=== PATIENT | female | born 1970 | race Caucasian/White ===

== ENCOUNTER 2016-10-06 20:06 | Emergency (ER) | payer BC ==
[2016-10-06 20:48] VITALS: BP 133/83
[2016-10-06] MEDS ORDERED: Albuterol HFA INHALER* 8 gm MDI INH ONE (21:11)
[2016-10-06] MEDS ORDERED: Acetaminop/Codeine 30 MG TAB* 1 TAB (300 MG/30 MG) PO ONE (21:11)
--- NOTE | 2016-10-06 21:11 | UC ---
Throat Pain/Nasal Matteo HPI - HPI Summary HPI Summary: Productive cough and trouble sleeping x 1 week. Everyone at work has had coughing illness. Denies hx of asthma or lung disease. Recent chills and temps 100.1 yesterday and 100F today. here because her mother and daughter urged her to come. - History of Current Complaint Chief Complaint: UCGeneralIllness Stated Complaint: COUGH, AND CHEST CONGESTION Time Seen by Provider: 10/06/16 20:50 Hx Obtained From: Patient Hx Last Menstrual Period: unknown ?: No Onset/Duration: Gradual Onset, Lasting Days Severity: Moderate Cough: Productive Associated Signs & Symptoms: Negative: Sinus Discomfort, Nasal Discharge, Vomiting, Rash - Allergies/Home Medications Allergies/Adverse Reactions: Allergies Allergy/AdvReac Type Severity Reaction Status Date / Time No Known Allergies Allergy Verified 10/06/16 20:29 Home Medications: Home Medications Acetaminophen [Tylenol] 1,250 mg ONCE 10/06/16 [History Confirmed 10/06/16] Irbesartan 75 mg PO 10/06/16 [History Confirmed 10/06/16] PMH/Surg Hx/FS Hx/Imm Hx Endocrine History Of: Denies: Diabetes, Thyroid Disease Cardiovascular History Of: Reports: Hypertension Denies: Cardiac Disorders Respiratory History Of: Denies: COPD, Asthma GI/ History Of: Denies: Ulcer - Surgical History Surgical History: Yes Surgery Procedure, Year, and Place: C section - Social History Occupation: Employed Full-time Lives: With Family Alcohol Use: None Substance Use Type: None Smoking Status (MU): Never Smoked Tobacco - Immunization History Most Recent Influenza Vaccination: 2016 Review of Systems Constitutional: Chills, Fatigue Skin: Negative Eyes: Negative ENT: Negative Respiratory: Cough Cardiovascular: Negative Gastrointestinal: Negative Genitourinary: Negative Motor: Negative Neurovascular: Negative Musculoskeletal: Negative Neurological: Negative Psychological: Negative All Other Systems Reviewed And Are Negative: Yes Physical Exam Triage Information Reviewed: Yes Appearance: Well-Appearing, Obese Vital Signs: Initial Vital Signs Temp 98.6 F 10/06/16 20:43 Pulse 101 10/06/16 20:43 Resp 18 10/06/16 20:43 BP 133/83 10/06/16 20:43 Pulse Ox 95 10/06/16 20:43 Vital Signs Reviewed: Yes Eye Exam: Normal Eyes: Positive: Conjunctiva Clear ENT Exam: Normal ENT: Positive: Normal ENT inspection, Hearing grossly normal, Pharynx normal, TMs normal. Negative: Tonsillar swelling, Tonsillar exudate Dental Exam: Normal Neck exam: Normal Neck: Positive: Supple, Nontender, No Lymphadenopathy Respiratory Exam: Other - occ productive cough Respiratory: Positive: Lungs clear, Normal breath sounds, No respiratory distress Cardiovascular: Positive: No Murmur, Tachycardia Abdominal Exam: Normal Musculoskeletal Exam: Normal Musculoskeletal: Positive: Strength Intact, ROM Intact, No Edema Neurological Exam: Normal Neurological: Positive: Alert Psychological Exam: Normal Skin Exam: Normal Throat Pain/Nasal Course/Dx - Differential Dx/Diagnosis Provider Diagnoses: bronchitis Discharge - Discharge Plan Condition: Stable Disposition: HOME Prescriptions: Acetaminop/Codeine 30 MG TAB* [Tylenol/Codeine 30 MG TAB*] 1 - 2 tab PO BEDTIME PRN #15 tab MDD 2 PRN Reason: Cough Patient Education Materials: Acute Bronchitis (ED) Referrals: Kyra Levine PA [Primary Care Provider] - Additional Instructions: I expect you to have some coughing for another 1-2 weeks, but you should see gradual improvement. Call or return if you develop increasing fever, shortness of breath, chest pain , bloody sputum, or otherwise worsen. If you have not improved at all after several days, contact your primary care physician or return here.
--- NOTE | 2016-10-06 21:17 | RAD ---
INDICATION: Cough COMPARISON: None TECHNIQUE: PA and lateral dual-energy views were obtained. FINDINGS: Bones/Soft Tissues: There are no acute bony findings. Cardiomediastinal: The cardiomediastinal silhouette is normal. Lungs: There are no infiltrates. Pleura: There are no pleural effusions. Other: None IMPRESSION: NO ACTIVE DISEASE.
== END 2016-10-06 21:45 | disposition home or self-care (01) ==
LOC: UCEAST 20:06
DX: J40 Bronchitis, not specified as acute or chronic (principal); I10 Essential (primary) hypertension; E66.9 Obesity, unspecified
CPT/HCPCS: 71020; 99213; A9270-GY; G0463

== ENCOUNTER 2018-10-26 16:41 | Emergency (ER) | payer BC ==
[2018-10-26 16:59] VITALS: BP 133/60
--- NOTE | 2018-10-26 17:09 | UC ---
Back Pain HPI - HPI Summary HPI Summary: 47 yo female presents with right flank pain. She tells me that she had a kidney stone 16 years ago and states that this feels the same. Her pain began in her right flank yesterday and has worsened today. She denies injury. She has not taken anything OTC for her symptoms. Denies dysuria, hematuria, or trauma to the area. - History of Current Complaint Chief Complaint: UCBackPain Stated Complaint: BACK PAIN Time Seen by Provider: 10/26/18 17:09 Hx Obtained From: Patient Hx Last Menstrual Period: has been many years. Onset/Duration: Sudden Onset Timing: Constant Severity Initially: Mild Severity Currently: Moderate Pain Intensity: 6 Pain Scale Used: 0-10 Numeric - Allergies/Home Medications Allergies/Adverse Reactions: Allergies Allergy/AdvReac Type Severity Reaction Status Date / Time No Known Allergies Allergy Verified 10/26/18 16:58 PMH/Surg Hx/FS Hx/Imm Hx Cardiovascular History: Hypertension Psychological History: Bipolar Disorder - Surgical History Surgical History: Yes Surgery Procedure, Year, and Place: C section - Family History Known Family History: Positive: Hypertension - Social History Occupation: Employed Full-time Lives: With Family Alcohol Use: None Substance Use Type: None Smoking Status (MU): Never Smoked Tobacco - Immunization History Most Recent Influenza Vaccination: 2016 Review of Systems All Other Systems Reviewed And Are Negative: Yes Constitutional: Positive: Negative Skin: Positive: Negative Respiratory: Positive: Negative Cardiovascular: Positive: Negative Gastrointestinal: Positive: Negative Genitourinary: Positive: Negative Neurovascular: Positive: Negative Musculoskeletal: Positive: Other: - Right flank pain Neurological: Positive: Negative Psychological: Positive: Negative Physical Exam - Summary Physical Exam Summary: GENERAL: NAD. Obese SKIN: No rashes, sores, lesions, or open wounds. NECK: Supple. Nontender. No lymphadenopathy. CHEST: CTAB. No r/r/w. No accessory muscle use. Breathing comfortably and in no distress. CV: RRR. Without m/r/g. Pulses intact. Cap refill <2seconds ABDOMEN: Soft. NTTP. Mild right CVA TTP. Bowel sounds present MSK: TTP over RIGHT thoracic/lumbar paraspinal muscles. Pain with flexion and extension of spine. Pain during truncal twisting. Negative SLR b/l. Strength 5/ 5 B/L LEs including dorsiflexion and plantar flexion. FROM B/L LEs. No edema. NEURO: Alert. PSYCH: Age appropriate behavior. Triage Information Reviewed: Yes Vital Signs: Initial Vital Signs Temp 97.9 F 10/26/18 16:53 Pulse 82 10/26/18 16:53 Resp 18 10/26/18 16:53 BP 133/60 10/26/18 16:53 Pulse Ox 100 10/26/18 16:53 Laboratory Tests 10/26/18 17:37 POC Urine Color Yellow POC Urine Clarity Clear POC Urine pH 5.0 POC Ur Specif [place] 1.020 POC Urine Protein Negative POC Ur Glucose (UA) Negative POC Urine Ketones Negative POC Urine Blood 1+ A POC Urine Nitrite Negative POC Urine Bilirubin Negative POC Urine Urobilinogen 0.2 POC U Leukocyte Esteras Negative Vital Signs Reviewed: Yes Back Pain Course/Dx - Course Course Of Treatment: UA with 1+ blood. Given pt's hx of kidney stone and stating that this feels the same - will obtain CT today. CT: IMPRESSION: 1. There is colonic diverticulosis without evidence for acute diverticulitis. 2. No visible renal, ureteral or bladder calculi. Discussed results with pt. Suspect muscle strain. Advised to apply heat and try taking NSAIDs for discomfort. F/u if symptoms do not improve - Differential Dx/Diagnosis Provider Diagnosis: Back strain Discharge - Sign-Out/Discharge Documenting (check all that apply): Patient Departure All imaging exams completed and their final reports reviewed: Yes - Discharge Plan Condition: Stable Disposition: HOME Patient Education Materials: Muscle Strain (ED), Flank Pain (ED) Referrals: Kyra Levine PA [Primary Care Provider] - Additional Instructions: If you develop a fever, shortness of breath, chest pain, new or worsening symptoms - please call your PCP or go to the ED immediately. 1) Your CT did not show a kidney stone today and your urine did not show any sign of infection. 2) Your back pain could be related to a muscle strain and I recommend you take ibuprofen 600-800mg every 6-8 hours as needed for pain and apply heat to the area. 3) Please be rechecked by your primary doctor within 1 week if your symptoms have not improved. - Billing Disposition and Condition Condition: STABLE Disposition: Home
== END 2018-10-26 18:30 | disposition home or self-care (01) ==
LOC: UCEAST 16:41
DX: S39.012A Strain of muscle, fascia and tendon of lower back, initial encounter (principal); S29.012A Strain of muscle and tendon of back wall of thorax, initial encounter; X58.XXXA Exposure to other specified factors, initial encounter; Y92.9 Unspecified place or not applicable; K57.30 Diverticulosis of large intestine without perforation or abscess without bleeding; I10 Essential (primary) hypertension; F31.9 Bipolar disorder, unspecified
CPT/HCPCS: 74176; 81003; 99211; G0463

== ENCOUNTER 2019-09-20 16:05 | Emergency (ER) | payer BC ==
--- OUTSIDE RECORDS SUMMARY | 2019-09-20 16:11 | XMS REPORT | Continuity of Care Document ---
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 Problems Description No Information Available Social History Type Date Description Comments Sex Unknown Tobacco Use Start: Unknown Never Smoked Cigarettes ETOH Use Never used alcohol Recreational Drug Use Never Used Drugs Allergies, Adverse Reactions, Alerts Active Allergies Reaction Severity Comments Date Metformin 08/25/2019 Medications Active Medications SIG Qnty Indications Ordering Provider Date Pioglitazone HCL Unknown 30mg Tablets Lamotrigine Unknown 100mg Tablets Spironolactone/Hydrochlorothiazide Unknown 25-25mg Tablets Irbesartan 75mg Unknown Tablets Nateglinide Unknown 120mg Tablets Prisca 0.35mg Unknown Tablets Immunizations Description No Information Available Vital Signs Date Vital Result Comment 08/26/2019 10:23am Weight 350.00 lb Height 62 inches 5'2" BMI (Body Mass Index) 64.0 kg/m2 BP Systolic 141 mmHg BP Diastolic 83 mmHg Heart Rate 78 /min O2 % BldC Oximetry 98 % Body Temperature 97.1 F [place] Score 9 Neck Circumference in inches 16 Pain Level 0 Results Description No Information Available Procedures Description No Information Available Medical Devices Description No Information Available Encounters Type Date Location Provider Dx Diagnosis Office Visit 08/26/2019 10:15a Main Office Graham Ng M.D R06.83 Snoring G47.30 Sleep apnea, unspecified E66.9 Obesity, unspecified Assessments Date Code Description Provider 08/26/2019 R06.83 Snoring Graham Ng M.D 08/26/2019 G47.30 Sleep apnea, unspecified Graham Ng M.D 08/26/2019 E66.9 Obesity, unspecified Graham Ng M.D Plan of Treatment No Information Available Functional Status Description No Information Available Mental Status Description No Information Available Referrals Refer to Dr Reason for Referral Status Appt Date Jhoan Bowles M.D. NO AUTH REQ FOR HOME STUDY Created [address] [place], [place] [address] [phone]
--- OUTSIDE RECORDS SUMMARY | 2019-09-20 16:11 | XMS REPORT | Continuity of Care Document ---
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 Problems Description No Information Available Social History [...] Oximetry 98 % Body Temperature 97.1 F Cypress Score 9 Neck Circumference in inches 16 Pain Level 0 Results Description No Information Available Procedures Description No Information Available Medical Devices Description No Information Available Encounters Description No Information Available Assessments Description No Information Available Plan of Treatment No Information Available Functional Status Description No Information Available Mental Status Description No Information Available Referrals Description No Information Available
--- OUTSIDE RECORDS SUMMARY | 2019-09-20 16:11 | XMS REPORT ---
:1970 Author Organization [facility] [place] [facility] Address [address] [place] [address] Care Team Providers Name Role Phone Héctor Krishnamurthy Unavailable Unavailable PROBLEMS Type Condition ICD9-CM Code GKC72-PJ Code Onset Condition SNOMED Code Dates Status Problem Other abnormal R92.8 Active 624161904 and inconclusive findings on diagnostic imaging of breast Problem Candidiasis of B37.2 Active 140388258 skin and nail Problem Body mass index Z68.43 Active 872158100 (BMI) 50-59.9 , adult Problem Amenorrhea, N91.2 Active 94305621 unspecified Problem Polycystic E28.2 Active 05931521 ovarian syndrome Problem Morbid (severe) E66.01 Active 455814561 obesity due to excess calories ALLERGIES No Information ENCOUNTERS Encounter Location Date Diagnosis [facility] [address] [place] [address] Jul, [address] [place] [id number] [facility] [address] [place] [address] Jun, Encounter for Road [address] [place], gynecological examination [place] [id number] (general) (routine) without abnormal findings Z01.419 and Encounter for screening mammogram for malignant neoplasm of breast Z12.31 [facility] 103 Jun, OBGYN [place] [id number] [facility] 103 Apr, OBG[place], [place] [id number] [facility] 103 Apr, Amenorrhea, unspecified OBGYN [facility], N91.2 and Body mass index [place] [address]54[address] (BMI) 50-59.9 , adult Z68.43 [facility] 103 29 Apr, 2018 [facility], [facility], N91.2 and Body mass index [place] 927204292 (BMI) 50-59.9 , adult Z68.43 [place] [facility] [address] [facility] 14 Apr, [address] [place], gynecological examination [place] [id number] (general) (routine) with abnormal findings Z01.411 ; Encounter for screening mammogram for malignant neoplasm of breast Z12.31 ; Amenorrhea, unspecified N91.2 ; Encounter for surveillance of contraceptive pills Z30.41 ; Body mass index (BMI) 50-59.9 , adult Z68.43 ; Candidiasis of skin and nail B37.2 and Polycystic ovarian syndrome E28.2 [facility] 103 24 Mar, 2018 [facility], surveillance of [place] [id number] contraceptive pills Z30.41 [facility] 103 24 Sep, 2017 [place] [id number] [facility] 103 Jul, [place], [place] [id number] [facility] 103 May, [place] [id number] [facility] 103 May, Unspecified lump in the [facility], right breast, unspecified [place] [id number] quadrant N63.10 [facility] 103 Apr, [place] [id number] [facility] 103 Mar, Unspecified lump in the [facility], right breast, unspecified [place] [id number] quadrant N63.10 [facility] 103 Mar, Other abnormal [facility], inconclusive findings on [place] [id number] diagnostic imaging of breast R92.8 [facility] 103 Feb, Amenorrhea, unspecified [facility], N91.2 ; Encounter for [place] [id number] surveillance of contraceptive pills Z30.41 and Morbid (severe) obesity due to excess calories E66.01 [facility] 103 Feb, Polycystic ovarian [facility], syndrome E28.2 [place] [id number] [facility] 103 Feb, [facility], for malignant neoplasm of [place] [id number] cervix Z12.4 ; Encounter for gynecological examination (general) (routine) without abnormal findings Z01.419 ; Encounter for screening mammogram for malignant neoplasm of breast Z12.31 ; Amenorrhea, unspecified N91.2 ; Encounter for surveillance of contraceptive pills Z30.41 ; Candidiasis of skin and nail B37.2 and Body mass index (BMI) 50-59.9 , adult Z68.43 [facility] 103 Dec, [place] [id number] [facility] Dec, [place] [id number] [facility] 103 Jul, [facility], gynecological examination [place] [id number] (general) (routine) without abnormal findings Z01.419 [facility] 103 Jan, [facility], gynecological examination [place] [id number] (general) (routine) without abnormal findings Z01.419 ; Body mass index (BMI) 50-59.9 , adult Z68.43 and Encounter for screening mammogram for malignant neoplasm of breast Z12.31 [facility] 103 Jan, 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 [facility], V72.31 ; SCREEN MAMMOGRAM [place] [id number] NEC V76.12 ; Body Mass Index 50.0-59.9, adult V85.43 and Yeast infection 112.9 [facility] 103 Jan, ROUTINE DEALERSHIP MANAGER EXAMINATION OBGYN [facility], V72.31 ; SCREEN MAMMOGRAM [place] [id number] NEC V76.12 and Body Mass Index 50.0-59.9, adult V85.43 [facility] 103 Dec, OBGYN [place], [place] [id number] [facility] 103 October, O[place] [id number] [facility] 103 Dec, [place] [id number] [facility] 103 Nov, ROUTINE DEALERSHIP MANAGER EXAMINATION OBGYN [facility], V72.31 and SCREEN [place] [id number] MAMMOGRAM NEC V76.12 [facility] 103 Dec, OBG[place], [place] [id number] [place] [facility] [address] [facility] Nov, ROUTINE DEALERSHIP MANAGER EXAMINATION [address] [place], V72.31 and PAP SMEAR W/O [place] [id number] DEALERSHIP MANAGER EXAM V76.2 [facility] 103 Nov, OBG[place], [place] [id number] [facility] 103 Nov, [place] [id number] [facility] 103 Aug, [place] [id number] [facility] 103 May, Anemia NOS 285.9 [place] [id number] [facility] 103 Dec, [place] [id number] [facility] 103 Nov, ROUTINE DEALERSHIP MANAGER EXAMINATION OBGYN [facility] V72.31 [place] [id number] [facility] 103 Jan, OBG[place] [id number] [facility] 103 Dec, Other abnormal clinical OBGYN [facility], findings 796.4 and BMI 40 [place] [id number] AND OVER,ADULT V85.4 [facility] 103 13 Dec, 2009 Other abnormal clinical OBGYN [facility], findings 796.4 and BMI 40 [place] [id number] AND OVER,ADULT V85.4 [facility] 103 Nov, OBG[place], [place] [id number] [facility] 103 Nov, ROUTINE DEALERSHIP MANAGER EXAMINATION OBGYN [facility], V72.31 ; URINARY [place] [id number] INCONTINENCE NOS 788.30 ; Other abnormal clinical findings 796.4 and BMI 40 AND OVER,ADULT V85.4 [facility] [place] [facility] 103 Feb, OBG[place], [place] [id number] [facility] 103 Dec, OBG[place], [place] [id number] [facility] 103 Nov, ROUTINE DEALERSHIP MANAGER EXAMINATION OBGYN [facility], V72.31 ; FAMILY PLANNING [place] [id number] V25.09 and Morbid obesity 278.01 [facility] [place] [facility] 103 Jan, OBG[place] [id number] [facility] [place] [facility] 103 October, ROUTINE DEALERSHIP MANAGER EXAMINATION OBGYN [facility], V72.31 and FAMILY [place] [id number] PLANNING V25.09 [facility] [place] [facility] 103 October, ROUTINE DEALERSHIP MANAGER EXAMINATION OBGYN [facility], V72.31 ; OBESITY NOS [place] [id number] 278.00 ; Stress incontinence, female 625.6 and CONTRACEPT PILL SURVEILL V25.41 [facility] 103 May, OBG[place] [id number] [facility] 103 Jan, OBG[place], [place] [id number] [facility] 103 Jan, O[place], [place] [id number] [facility] 103 Nov, OBG[place], [place] [id number] [facility] 103 Sep, Well Adult exam V 70.0 OBGYN [facility], and ROUTINE DEALERSHIP MANAGER [place] [id number] EXAMINATION V72.31 [facility] 103 Jun, OBG[place], [place] [id number] UNKNOWN May, UNKNOWN Apr, [facility] 103 Apr, [place], [place] [id number] [facility] 103 Apr, [place], [place] [id number] [facility] 103 Mar, [place] [id number] [facility] 103 Mar, O[place] [id number] [facility] 103 Feb, [place] [id number] [facility] 103 Feb, [place] [id number] [facility] 103 Feb, [place] [id number] [facility] 103 Feb, [place], [place] [id number] [facility] 103 Feb, LARGE FOR DATES 656.63 ; OBGYN [facility], Rkczr-dar-indnd infant [place] [id number] regardless of gestation period 766.1 and /OTHER ANTE. SCREENING V28.8 [facility] 103 Jan, [place] [id number] [facility] 103 Jan, [place], [place] [id number] IMMUNIZATIONS No Known Immunizations SOCIAL HISTORY Never Assessed REASON FOR REFERRAL FUNCTIONAL STATUS PLAN OF CARE VITAL SIGNS MEDICATIONS Unknown Medications PROCEDURES No Known procedures RESULTS No Results REASON FOR VISIT 04/2019, annual w/ us Insurance Providers [facility]ly [facility] Health Member Patient Patient Patient Patient Patient Subscriber Subscriber Subscriber Group Insurance Plan Plan Plan Plan ID Relationship Address Phone Name Date of ID Name Date of No Type Insurance Insurance Insurance Coverage to Subscriber Address Phone Name Dates [employer] [phone] [employer] [place] [id number] PCN Blue [id number] 89 Blue [place] 7 Cross/Blue [place] Cross/Blue Shield [id number] Shield [employer] [phone] [employer] self [place] [id number] Blue [id number] 89 Blue [place] 1 Cross[place] Cross/Blue Shield [id number] Shield Blue [phone] Blue self [place] [id number] Cross/Blue [id number] Cross/Blue [place] 1 0 Shield [facility] [address] Excell[employer] [phone] [employer] [place] [id number] Blue [id number] 89 Blue [place] 1 Cross/Blue [place] Cross/Blue Shield [id number] Shield MEDICAL (GENERAL) HISTORY Type Description Date Medical History obesity Medical History PCOS- started metformin 11/2011 Medical History Fluid retention in legs Medical History HTN Medical History DM2 Surgical History Lithotripsy 10/22 Surgical History 03/23/05 Hospitalization History see above Hospitalization History childbirth 1997 Hospitalization History childbirth 1999
--- OUTSIDE RECORDS SUMMARY | 2019-09-20 16:11 | XMS REPORT ---
:1970 Author Name Freda Joseph Address [address] [place] [address] Care Team Providers Name Role Phone Freda Joseph Unavailable Unavailable PROBLEMS Type Condition ICD9-CM Code TVT06-OD Code Onset Condition SNOMED Code Dates Status Problem Other abnormal R92.8 Active 524881450 and inconclusive findings on diagnostic imaging of breast Problem Candidiasis of B37.2 Active 183116771 skin and nail Problem Body mass index Z68.43 Active 080958597 (BMI) 50-59.9 , adult Problem Amenorrhea, N91.2 Active 83135099 unspecified Problem Polycystic E28.2 Active 20661841 ovarian syndrome Problem Morbid (severe) E66.01 Active 212806613 obesity due to excess calories ALLERGIES No Known Allergies ENCOUNTERS Encounter Location Date Diagnosis [facility] [address] [place] [address] 03 Jul, [address] [place] [id number] [facility] [address] [place] [address] Jun, Encounter for Road [address] [place], gynecological examination [place] [id number] (general) (routine) without abnormal findings Z01.419 and Encounter for screening mammogram for malignant neoplasm of breast Z12.31 [facility] 103 Jun, [place] [id number] [facility] Apr, [place], [place] [id number] [facility] Apr, Amenorrhea, unspecified OBGYN [facility], N91.2 and Body mass index [place] 737286313 (BMI) 50-59.9 , adult Z68.43 [facility] 103 29 Apr, 2018 [facility], [facility], N91.2 and Body mass index [place] 9546570[address] (BMI) 50-59.9 , adult Z68.43 [place] [facility] [address] [facility] 14 Apr, [address] [place], gynecological examination [place] [id number] (general) (routine) with abnormal findings Z01.411 ; Encounter for screening mammogram for malignant neoplasm of breast Z12.31 ; Amenorrhea, unspecified N91.2 ; Encounter for surveillance of contraceptive pills Z30.41 ; Body mass index (BMI) 50-59.9 , adult Z68.43 ; Candidiasis of skin and nail B37.2 and Polycystic ovarian syndrome E28.2 [facility] 103 24 Mar, 2018 Encounter for OBGYN [facility], surveillance [place] [id number] contraceptive pills Z30.41 [facility] 103 24 Sep, 2017 [place] [id number] [facility] 103 Jul, [place] [id number] [facility] 103 May, [place] [id number] [facility] 103 May, [facility], right breast, unspecified [place] [id number] quadrant N63.10 [facility] 103 Apr, [place] [id number] [facility] 103 Mar, Unspecified lump in the [facility], right breast, unspecified [place] [id number] quadrant N63.10 [facility] 103 12 Mar, 2017 [facility] [place]clusive findings [place] [id number] diagnostic imaging of breast R92.8 [facility] 103 Feb, Amenorrhea, unspecified OBGYN [facility], N91.2 ; Encounter [place] [id number] surveillance of contraceptive pills Z30.41 and Morbid (severe) obesity due to excess calories E66.01 [facility] 103 Feb, Polycystic ovarian OBGYN [facility], syndrome E28.2 [place] [id number] [facility] 103 Feb, Encounter for screening OBN [facility], for malignant neoplasm of [place] [id number] cervix Z12.4 ; Encounter for gynecological examination (general) (routine) without abnormal findings Z01.419 ; Encounter for screening mammogram for malignant neoplasm of breast Z12.31 ; Amenorrhea, unspecified N91.2 ; Encounter for surveillance of contraceptive pills Z30.41 ; Candidiasis of skin and nail B37.2 and Body mass index (BMI) 50-59.9 , adult Z68.43 [facility] 103 Dec, [place] [id number] [facility] 103 Dec, [place] [id number] [facility] 103 Jul, [facility], gynecological examination [place] [id number] (general) (routine) without abnormal findings Z01.419 [facility] 103 Jan, [facility], gynecological examination [place] [id number] (general) (routine) without abnormal findings Z01.419 ; Body mass index (BMI) 50-59.9 , adult Z68.43 and Encounter for screening mammogram for malignant neoplasm of breast Z12.31 [facility] 103 Jan, ROUTINE BOOM WORKER EXAMINATION OBN [facility], V72.31 ; SCREEN MAMMOGRAM [place] [id number] NEC V76.12 ; Body Mass Index 50.0-59.9, adult V85.43 and Yeast infection 112.9 [facility] 103 Jan, ROUTINE BOOM WORKER EXAMINATION OBGYN [facility], V72.31 ; SCREEN MAMMOGRAM [place] [id number] NEC V76.12 and Body Mass Index 50.0-59.9, adult V85.43 [facility] 103 Dec, [place] [id number] [facility] October, [place], [place] [id number] [facility] Dec, [place], [place] [id number] [facility] 103 Nov, ROUTINE BOOM WORKER EXAMINATION OBGYN [facility], V72.31 and SCREEN [place] [id number] MAMMOGRAM NEC V76.12 [facility] 103 Dec, [place], [place] [id number] [place] [facility] 2333 [facility] Nov, ROUTINE BOOM WORKER EXAMINATION Road [address] [place], V72.31 and PAP SMEAR W/O [place] [id number] BOOM WORKER EXAM V76.2 [facility] 103 Nov, [place] [id number] [facility] 103 Nov, [place] [id number] [facility] Aug, [place], [place] [id number] [facility] 103 May, Anemia NOS 285.9 [place] [id number] [facility] 103 Dec, [place] [id number] [facility] 103 Nov, ROUTINE BOOM WORKER EXAMINATION OBGYN [facility], V72.31 [place] [id number] [facility] 103 Jan, [place] [id number] [facility] 103 Dec, Other abnormal clinical [facility], findings 796.4 and BMI 40 [place] [id number] AND OVER,ADULT V85.4 [facility] Dec, Other abnormal clinical OBGYN [facility], findings 796.4 and BMI 40 [place] [id number] AND OVER,ADULT V85.4 [facility] 103 Nov, [place] [id number] [facility] Nov, ROUTINE BOOM WORKER EXAMINATION OBGYN [facility], V72.31 ; URINARY [place] [id number] INCONTINENCE NOS 788.30 ; Other abnormal clinical findings 796.4 and BMI 40 AND OVER,ADULT V85.4 [facility] 103 Feb, [place] [id number] [facility] 103 Dec, [place], [place] [id number] [facility] 103 Nov, ROUTINE BOOM WORKER EXAMINATION OBGYN [facility], V72.31 ; FAMILY PLANNING [place] [id number] V25.09 and Morbid obesity 278.01 [facility] 103 Jan, [place] [id number] [facility] 103 October, ROUTINE BOOM WORKER EXAMINATION OBGYN [facility], V72.31 and FAMILY [place] [id number] PLANNING V25.09 [facility] 103 October, ROUTINE BOOM WORKER EXAMINATION OBGYN [facility], V72.31 ; OBESITY NOS [place] [id number] 278.00 ; Stress incontinence, female 625.6 and CONTRACEPT PILL SURVEILL V25.41 [facility] 103 13 May, 2006 [place] [id number] [facility] 103 Jan, [place] [id number] [facility] 103 Jan, [place] [id number] [facility] 103 Nov, [place] [id number] [facility] 103 Sep, Well Adult exam V 70.0 O[facility]YN [facility], and ROUTINE BOOM WORKER [place] [id number] EXAMINATION V72.31 [facility] 103 Jun, [place], [place] [id number] UNKNOWN May, UNKNOWN Apr, [facility] 103 Apr, [place] [id number] [facility] 103 Apr, [place] [id number] [facility] 103 Mar, [place], [place] [id number] [facility] 103 Mar, [place] [id number] [facility] 103 Feb, [place] [id number] [facility] 103 Feb, [place] [id number] [facility] 103 Feb, [place] [id number] [facility] 103 Feb, [place] [id number] [facility] 103 Feb, LARGE FOR DATES 656.63 ; OBGYN [facility], Gqocb-yed-tchve [place] [id number] regardless of gestation period 766.1 and /OTHER ANTE. SCREENING V28.8 [facility] 103 Jan, [place] [id number] [facility] 103 Jan, [place], [place] [id number] IMMUNIZATIONS No Known Immunizations SOCIAL HISTORY Never Assessed REASON FOR REFERRAL FUNCTIONAL STATUS PLAN OF CARE Activity Details Follow Up schedule mammo Reason: Pending Test Mammogram, Routine Screening - bilateral VITAL SIGNS Height 63 in 2019-07-20 Weight 350 lbs 2019-07-20 BMI 61.99 kg/m2 2019-07-20 Blood pressure systolic 118 mm Hg 2019-07-20 Blood pressure diastolic 78 mm Hg 2019-07-20 MEDICATIONS Medication Instructions Dosage Frequency Start End Duration Status Date Date Lamictal 100 mg orally qd 1 tab(s) 24h 30 day(s) Active hydrochlorothiazi orally once a 2 tab(s) 24h 30 day(s) Active de-spironolactone day 25 mg-25 mg nystatin topical applied 1 ap Apr, day(s) Active 100,000 units/g topically to 2018 affected areas 3 times a day until fully resolved nateglinide 60 mg orally 3 times a 1 tab(s) Active day (before meals) pioglitazone 15 orally once a 1 tab(s) 24h Active mg day irbesartan 75 mg orally once a 1 tab(s) 24h Active day norethindrone orally once a 1 tab(s) 24h Jun, day(s) Active 0.35 mg day 2019 PROCEDURES No Known procedures RESULTS No Results REASON FOR VISIT Annual Insurance Providers [facility] Member Patient Patient Patient Patient Patient Subscriber Subscriber Subscriber Group Insurance Plan Plan Plan Plan ID Relationship Address Phone Name Date of ID Name Date of No Type Insurance Insurance Insurance Coverage to Subscriber Address Phone Name Dates [employer] [phone] [place] [id number] PCN Blue [id number] 89 Blue [place] 7 Cross/Blue [place] Cross/Blue Shield [id number] Shield Blue [phone] Blue self [place] [id number] Cross/Blue [id number] Cross/Blue [place] 1 0 [place] [address] Excellus [phone] Excellus self [place] [id number] Blue [id number] 89 Blue [place] 1 Cross/Blue [place] Cross/Blue Shield [address] Shield Excellus [phone] Excellus self [place] [id number] Blue [id number] 89 Blue [place] 1 Cross[place] Cross/Blue Shield [id number] [facility] MEDICAL (GENERAL) HISTORY Type Description Date Medical History obesity Medical History PCOS- started metformin 11/2011 Medical History Fluid retention in legs Medical History HTN Medical History DM2 Surgical History Lithotripsy 10/22 Surgical History 03/23/05 Hospitalization History see above Hospitalization History childbirth 1997 Hospitalization History childbirth 2000
--- NOTE | 2019-09-20 16:40 | UC ---
Back Pain HPI - HPI Summary HPI Summary: 48 y with onset of upper to lower lumbar back pain which began after a nap in a recliner on 09/17/19. Pain affected by position, worse with standing. No urinary sx, but she does have a hx of renal stones with stenting in about 2002. Yesterday the pain radiated to the right flank, but this has subsided. Pain worsens with movements, including bending her neck. She has had muscular low back pain on occasion. No relief with use of acetaminophen 1500mg. Weight is high, and she is not generally physically active, without recent trauma or unusual exertion. Pain does not increase with eating or bowel passage, and she has no radiation of pain at this time. No paresthesias, no muscle weakness, no urinary or fecal incontinence. - History of Current Complaint Stated Complaint: BACK PAIN Time Seen by Provider: 09/20/19 16:28 Hx Obtained From: Patient Hx Last Menstrual Period: has been many years. Onset/Duration: Sudden Onset Timing: Intermittent, Lasting Hours Severity Initially: Moderate Severity Currently: Moderate Back Pain: Is Diffuse - across upper lumbar spine, occasionally in the low thoracic spine and low lumbar area. Aggravating Factor(s): Movement, Walking Alleviating Factor(s): Rest Associated Signs And Symptoms: Negative: Fever, Weakness, Numbness, Tingling, Flank Pain, Bladder Incontinence, Bowel Incontinence - Risk Factors AAA Risk Factors: Negative TAD Risk Factors: Negative Cauda Equina Risk Factors: Negative Epidural Abscess Risk Factors: Negative - Allergies/Home Medications Allergies/Adverse Reactions: Allergies Allergy/AdvReac Type Severity Reaction Status Date / Time No Known Allergies Allergy Verified 10/26/18 16:58 Home Medications: Home Medications Control Pills 1 tab PO DAILY 10/01/13 [History Confirmed 09/20/19] Hydrochlorothiazide TAB* 2 tab PO DAILY 10/01/13 [History Confirmed 09/20/19] Lamictal 1 tab PO DAILY 10/01/13 [History Confirmed 09/20/19] Irbesartan 75 mg PO DAILY 10/06/16 [History Confirmed 09/20/19] Cyclobenzaprine TAB* [Flexeril 10 MG TAB*] 10 mg PO BID PRN #30 tab 09/20/19 [Rx ] PMH/Surg Hx/FS Hx/Imm Hx - Additional Past Medical History Additional PMH: morbid obesity Endocrine History: Diabetes Cardiovascular History: Hypertension Neurological History: Seizures - last was more than 5 years ago. - Surgical History Surgical History: Yes Surgery Procedure, Year, and Place: C section - Family History Known Family History: Positive: Hypertension, Diabetes, Renal Disease - father had renal stones. - Social History Occupation: Employed Full-time Lives: With Family Alcohol Use: None Substance Use Type: None Smoking Status (MU): Never Smoked Tobacco - Immunization History Most Recent Influenza Vaccination: 2016 Review of Systems All Other Systems Reviewed And Are Negative: Yes Constitutional: Positive: Negative Skin: Positive: Negative Eyes: Positive: Negative ENT: Positive: Negative Respiratory: Positive: Negative Cardiovascular: Positive: Negative Gastrointestinal: Positive: Negative Genitourinary: Negative: Dysuria, Hematuria, Frequency, Urgency Motor: Positive: Decreased ROM Neurovascular: Positive: Negative Musculoskeletal: Positive: Arthralgia, Myalgia Neurological/Mental Status: Positive: Negative Psychological: Positive: Negative Physical Exam Triage Information Reviewed: Yes Appearance: Pain Distress - mild, Obese Eye Exam: Normal ENT: Positive: Normal ENT inspection Neck: Positive: Supple, Nontender, No Lymphadenopathy Respiratory: Positive: Lungs clear, Normal breath sounds Cardiovascular: Positive: RRR, No Murmur Abdomen Description: Positive: Nontender, No Organomegaly, Soft. Negative: CVA Tenderness (R), CVA Tenderness (L) Musculoskeletal: Positive: Strength Intact, ROM Limited @ - lumbar spine with pain with forward flexion >60 degrees, and pain with rotation. SLR to 80 degrees with pain only on the left side, but mild. Normal toe walking, no weakness., Edema @ - both legs/? lymphedema Neurological: Positive: Alert, Muscle Tone Normal Skin Exam: Normal Back Pain Course/Dx - Course Course Of Treatment: Findings consistent with mechanical low back pain. Discussed not a good candidate for nsaid's. - Differential Dx/Diagnosis Differential Diagnosis/HQI/PQRI: Herniated Disc, Strain, Sprain Provider Diagnosis: Low back pain Discharge ED - Sign-Out/Discharge Documenting (check all that apply): Patient Departure All imaging exams completed and their final reports reviewed: No Studies - Discharge Plan Condition: Critical Disposition: HOME Prescriptions: Cyclobenzaprine TAB* [Flexeril 10 MG TAB*] 10 mg PO BID PRN #30 tab PRN Reason: Spasms - Back Patient Education Materials: Low Back Strain (ED), Lower Back Exercises (ED) Referrals: Yale,[place], [place] [Primary Care Provider] - Additional Instructions: You can continue use of acetaminophen. You can use the muscle relaxant up to twice daily, being aware that it causes sedation and relaxes all of your muscles. - Billing Disposition and Condition Condition: CRITICAL Disposition: Home
[2019-09-20 17:00] VITALS: BP 178/81
== END 2019-09-20 17:00 | disposition home or self-care (01) ==
LOC: UCEAST 16:05
DX: M54.5 Low back pain (principal); E11.9 Type 2 diabetes mellitus without complications; I10 Essential (primary) hypertension; R56.9 Unspecified convulsions; Z79.899 Other long term (current) drug therapy
CPT/HCPCS: 81003; 99212; G0463

== ENCOUNTER 2021-04-02 09:10 | Observation (INO) ==
[2021-04-02] MEDS ORDERED: cefTRIAXone 2 GM ADDV.VIAL 2 GM in NS 0.9% 100 ml BAG 100 ML IVPB ONE (14:01)
[2021-04-02 14:34] LABS: ABS Monocytes 0.9 10^3/ul (0-0.8); ABS Neutrophils 11.9 10^3/ul (1.5-7.7); Eosinophil % 0.2 %; Hematocrit 33 % (35-47); Hemoglobin 10.9 g/dL (12.0-16.0); Lymphocyte % 6.9 %; Mean Corpuscular HGB Conc 34 g/dL (31-36); Mean Corpuscular Hemoglobin 29 pg (27-31); Mean Corpuscular Volume 88 fL (80-97); Mean Platelet Volume 8.1 fL (7.4-10.4); Platelet Count 293 10^3/uL (150-450); Red Blood Count 3.72 10^6 /uL (3.70-4.87); Red Cell Distribution Width 15 % (10-15); White Blood Count 13.8 10^3/uL (3.5-10.8)
[2021-04-02 15:03] LABS: C Reactive Protein 404.84 mg/L (<8.01); Calcium 9.7 mg/dL (8.6-10.3); Potassium 3.3 mmol/L (3.5-5.0)
[2021-04-02] MEDS ORDERED: Lactated Ringers 1000 ml BAG 1,000 ML IV ONE (16:16)
[2021-04-02] MEDS ORDERED: Dextrose 50% Syringe 50 ml 25 GM/50 ML SYRINGE IV PUSH PRN (16:59)
[2021-04-02] MEDS ORDERED: Potassium Chlor 20 meq TAB.ER PO ONE (17:04)
[2021-04-02 17:40] LABS: Rapid COVID-19 Molecular Undetected (Undetected)
[2021-04-02] MEDS: Heparin 5000 UNITS/ML 1 mL VIAL SUBCUT SCH (22:27)
[2021-04-02] MEDS: NS 0.9% 1000 ml BAG 1,000 ML IV SCH (22:45)
[2021-04-03] MEDS: Heparin 5000 UNITS/ML 1 mL VIAL SUBCUT SCH (06:03)
[2021-04-03] MEDS: NS 0.9% 1000 ml BAG 1,000 ML IV SCH (07:44)
[2021-04-03] MEDS ORDERED: cefTRIAXone 1 gm/50 mL NS BAG 1 GM/50 ML BAG IVPB SCH (08:00)
[2021-04-03 09:00] LABS: ABS Lymphocytes 1.1 10^3/ul (1.0-4.8); ABS Monocytes 0.7 10^3/ul (0-0.8); ABS Neutrophils 9.4 10^3/ul (1.5-7.7); Eosinophil % 0.4 %; Hematocrit 28 % (35-47); Hemoglobin 9.4 g/dL (12.0-16.0); Lymphocyte % 9.6 %; Mean Corpuscular HGB Conc 33 g/dL (31-36); Mean Corpuscular Hemoglobin 29 pg (27-31); Mean Corpuscular Volume 86 fL (80-97); Mean Platelet Volume 7.4 fL (7.4-10.4); Platelet Count 257 10^3/uL (150-450); Red Blood Count 3.29 10^6 /uL (3.70-4.87); Red Cell Distribution Width 15 % (10-15); White Blood Count 11.3 10^3/uL (3.5-10.8)
[2021-04-03] MEDS ORDERED: Empaglifozin 10 mg TAB (NF) PO SCH (09:00)
[2021-04-03] MEDS ORDERED: Spironolactone/HCTZ 25-25 mg PO SCH (09:00)
[2021-04-03 09:18] LABS: Potassium 3.5 mmol/L (3.5-5.0)
[2021-04-03] MEDS ORDERED: Flu vaccine *QUAD* 2021-22* 0.5 ML SYRINGE IM ONE (11:30)
[2021-04-03 11:31] VITALS: BP 107/61
== END 2021-04-03 12:20 | disposition home or self-care (01) ==
LOC: ED 09:10 → SSU 09:10
PROVIDERS: ADMIT Internal Medicine; ATTEND Internal Medicine